=== PATIENT | male | born 1985 | race Two or more races ===

== ENCOUNTER 2019-07-18 21:13 | Emergency (ER) | payer OTHER ==
[~2019-07-18] VITALS: Ht 175.3 cm; Wt 97.5 kg
--- NOTE | 2019-07-18 21:32 | NUR ---
NOAH MCCULLOUGH AT BEDSIDE FOR EVAL
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
[2019-07-18] MEDS ORDERED: TDAP [DIPH/PERTUSSIS/TET] 0.5 ML VIAL IM ONE ×2 (21:58→22:00)
[2019-07-18] MEDS ORDERED: IBUPROFEN 600 MG TABLET PO ONE ×2 (21:58→22:00)
[2019-07-18] MEDS ORDERED: HYDROCODONE/APAP 5/325MG 1 EACH TABLET ONE (22:43)
--- NOTE | 2019-07-18 22:46 | NUR ---
Patient discharged to home in stable condition. Written and verbal after care instructions given. Patient verbalizes understanding of instruction.
[2019-07-18 22:47] VITALS: BP 118/84
[2019-07-18] MEDS ORDERED: HYDROCODONE/APAP 5/325MG 1 EACH TABLET PO ONE (23:00)
== END 2019-07-18 22:47 | disposition home or self-care (01) ==
LOC: ER 21:17
DX: S16.1XXA Strain of muscle, fascia and tendon at neck level, initial encounter (principal); S20.219A Contusion of unspecified front wall of thorax, initial encounter; S60.512A Abrasion of left hand, initial encounter; S60.511A Abrasion of right hand, initial encounter; S60.812A Abrasion of left wrist, initial encounter; S60.811A Abrasion of right wrist, initial encounter; K21.9 Gastro-esophageal reflux disease without esophagitis; V49.49XA Driver injured in collision with other motor vehicles in traffic accident, initial encounter; Y93.89 Activity, other specified; Y92.413 State road as the place of occurrence of the external cause; Y99.8 Other external cause status
CPT/HCPCS: 71045-TC; 90715